=== PATIENT | male | born 1960 | race Caucasian/White ===

== ENCOUNTER 2016-07-11 18:54 | Inpatient (IN) | payer OTHER ==
[~2016-07-11] VITALS: Ht 185.4 cm; Wt 99.1 kg
[~2016-07-11 18:54] MED LIST: ADVAIR 250/501 DISK IH; ADVAIR HFA120 INHALA IH; AMLODIPINE BESY10 MG PO; AMLODIPINE BESYL5 MG PO; ARTIFICIAL TEAR15 M1 BOTH EYES; ASPIR 8181 M1 PO; ASPIR-LOW81 MG PO; ASPIRIN E.C.81 M1 PO; AZITHROMYCIN500 M1 PO; AZITHROMYCIN500 MG PO; Advair HFA 115/21 IH; BACTRIM,SEPT1 TABLET PO; BLOOD PRESSURE MED PO; CARDIZEM CD,CA240 MG PO; CARTIA XT240 MG PO; CHANTIX1 MG PO; CHLORDIAZEPOXID25 MG PO; COZAAR25 MG PO; Combivent IH; DAILY VALUE1 EACH PO; DELTASONE10 MG PO; FOLIC ACID0.4 MG PO; FOLIC ACID1 MG PO; FOLVITE1 M1 PO; Folvite PO; HABITROL,NICODER7 MG TD; KEFLEX500 MG PO; LEVAQUIN500 MG PO; LIBRIUM25 MG PO; LOPRESSOR25 MG PO; LOSARTAN POTASS25 MG PO; MAG-OX400 M1 PO; Medrol Dosepak PO; NICOTINE GUM4 MG BC; NICOTINE PATCH1 EAC2 TD; NOHOMEMEDS; PREDNISONE10 MG PO; PREDNISONE20 MG PO; PREDNISONE50 MG PO; PROAIR HFA8.5 GM IH; PROAIR RESPICL90 MCG IH; PROVENTIL HFA6.7 GM IH; PROVENTIL,2.5 MG/0.5 AEROSOL; PROVENTIL,2.5 MG/3 M IH; PriLOSEC PO; Proventil,Ventolin H IH; SPIRIVA RESPIMAT4 GM IH; THERAGRAN1 TABLET PO; THIAMINE,VITAM100 MG PO; Thiamine,Vitamin B1 PO; VENTOLIN HFA18 GM IH; VITAMIN B-1100 MG PO; VITAMIN B1,100 MG/ML IV; Vasotec PO; ZITHROMAX Z-PA250 MG PO; ZITHROMAX250 MG PO; ZITHROMAX500 MG PO; ZOFRAN ODT8 MG PO; ZOLOFT50 MG PO; ZOLPIDEM TARTRAT5 MG PO; [UNRECOGNIZED DRUG - OTHER] PO; [UNRECOGNIZED DRUG - REMARK]; prednisone
[2016-07-11 21:22] LABS: INFLUENZA A VIRAL ANTIGEN NEGATIVE; INFLUENZA B VIRAL ANTIGEN NEGATIVE
[2016-07-11 22:33] LABS: HEMATOCRIT 41.8 % (38.0-50.0); MCH 30.9 PG (29.0-34.0); MCHC 33.7 G/DL (30.0-36.0); MCV 91.5 FL (86-99); RBC DIS.WIDTH-CV 15.3 % (11.8-14.6); RBC DIS.WIDTH-SD 49.2 % (39-53); RED BLOOD COUNT 4.57 M/uL (4.00-5.50); WHITE BLOOD COUNT 6.7 K/uL (4.1-10.2)
[2016-07-11 22:36] LABS: MEAN PLAT.VOLUME 9.9 uM^3 (9.0-12.4); PLATELET COUNT 293 K/uL (156-360)
[2016-07-11 22:45] LABS: CHLORIDE 102 mEq/L (99-109)
[2016-07-11 22:46] LABS: POTASSIUM 4.3 mEq/L (3.7-5.4); SODIUM 142 mEq/L (136-147)
[2016-07-11 22:48] LABS: GLUCOSE 117 mg/dL (70-99)
[2016-07-11 22:49] LABS: ANION GAP 16 MEQ/L (2-14)
[2016-07-11 22:50] LABS: TOTAL BILIRUBIN 0.5 mg/dL (0.0-1.0)
[2016-07-11 22:51] LABS: ALKALINE PHOSPHATASE 87 IU/L (3-129); GFR ESTIMATE (CALCULATED) > 59 mL/min/
[2016-07-11 22:53] LABS: UREA NITROGEN (BUN) 6 mg/dL (9-23)
[2016-07-11 22:58] LABS: TROP-I INTERPRETATION NEGATIVE; TROPONIN-I 0.02 ng/mL (0.0-0.30)
[2016-07-12 01:37] VITALS: BP 165/90
[2016-07-12 04:41] VITALS: BP 152/76
[2016-07-12 11:46] VITALS: BP 180/78
[2016-07-12 12:38] LABS: MAGNESIUM 1.3 mg/dl (1.3-2.7)
[2016-07-12 14:00] LABS: METH RESISTANT S AUREUS PCR NEGATIVE (NEGATIVE)
[2016-07-12 14:01] LABS: PROBE CHECK PASS; SPECIMEN PROCESSING CONTROL PASS
[2016-07-12 15:45] VITALS: BP 170/84
[2016-07-13 00:20] VITALS: BP 140/71
[2016-07-13 04:05] VITALS: BP 161/71
[2016-07-13 12:00] VITALS: BP 158/68
[2016-07-13 12:53] LABS: POINT-OF-CARE METER ID UU13113700
[2016-07-13 14:00] VITALS: BP 181/84
[2016-07-13 20:39] VITALS: BP 168/81
[2016-07-14] VITALS (7 sets, daily range): BP systolic 120–184; BP diastolic 58–93
[2016-07-14 07:15] LABS: ALKALINE PHOSPHATASE 62 IU/L (3-129); ANION GAP 7 MEQ/L (2-14); CHLORIDE 105 MEQ/L (99-109); GFR ESTIMATE (CALCULATED) > 59 mL/min/; GLUCOSE 105 mg/dL (70-99); SAMPLE HEMOLYSIS CHECK 0; SAMPLE ICTERIC CHECK 0; SAMPLE LIPEMIA CHECK 0; SODIUM 138 MEQ/L (136-147); TOTAL BILIRUBIN 0.9 MG/DL (0.0-1.0); UREA NITROGEN (BUN) 6 mg/dL (9-23)
[2016-07-14 07:21] LABS: POTASSIUM 3.3 MEQ/L (3.7-5.4)
[2016-07-15 04:32] VITALS: BP 166/77
[2016-07-15 06:47] LABS: ANION GAP 11 MEQ/L (2-14); CHLORIDE 105 MEQ/L (99-109); GFR ESTIMATE (CALCULATED) > 59 mL/min/; GLUCOSE 117 mg/dL (70-99); POTASSIUM 3.4 MEQ/L (3.7-5.4); SAMPLE HEMOLYSIS CHECK 0; SAMPLE ICTERIC CHECK 0; SAMPLE LIPEMIA CHECK 0; SODIUM 142 MEQ/L (136-147); UREA NITROGEN (BUN) 9 mg/dL (9-23)
[2016-07-15 08:30] VITALS: BP 165/98
[2016-07-15 12:46] VITALS: BP 165/83
[2016-07-15 16:57] VITALS: BP 160/83
[2016-07-16 04:00] VITALS: BP 148/78
[2016-07-16 08:00] VITALS: BP 156/78
[2016-07-16 11:36] VITALS: BP 153/91
[2016-07-16 20:47] VITALS: BP 144/76
[2016-07-17] VITALS: BP 159/87
[2016-07-17 08:37] VITALS: BP 162/81
[2016-07-17] MEDS ORDERED: BENZONATATE100 MG PO (09:24)
[2016-07-17] MEDS ORDERED: CHLORDIAZEPOXID25 MG PO (09:24)
[2016-07-17] MEDS ORDERED: SPIRIVA RESPIMAT4 GM IH (09:24)
[2016-07-17] MEDS ORDERED: PREDNISONE10 MG PO (09:24)
[2016-07-17] MEDS ORDERED: NICOTINE PATCH1 EAC1 TD (09:24)
== END 2016-07-17 09:20 | disposition left against medical advice (07) | DRG 191 ==
LOC: EME 18:54 → EDOF 07-12 00:13 → 5WEST 07-12 01:23
PROVIDERS: Emergency Medicine; Internal Medicine; Nurse Practitioner Adult Health; Physician Assistant
DX: J44.1 Chronic obstructive pulmonary disease with (acute) exacerbation (principal); F10.239 Alcohol dependence with withdrawal, unspecified; K70.9 Alcoholic liver disease, unspecified; R56.9 Unspecified convulsions; F17.210 Nicotine dependence, cigarettes, uncomplicated; I48.0 Paroxysmal atrial fibrillation; I10 Essential (primary) hypertension; E78.5 Hyperlipidemia, unspecified; Z91.19 Patient's noncompliance with other medical treatment and regimen; Z59.0 Homelessness
CPT/HCPCS: 71010; 71020; 80048; 80053; 82948; 83735; 84100; 84484; 85027; 87502; 87641; 93005; 94640; 94640 76; 94760; 99202; 99281; 99285; J1650; J1885; J3411; J3475; J7030; J7042; J7512

== ENCOUNTER 2016-07-20 00:09 | Emergency (ER) | payer OTHER ==
[~2016-07-20] VITALS: Ht 185.4 cm; Wt 88.0 kg
[~2016-07-20 00:09] MED LIST changes: +BENZONATATE100 MG PO; +NICOTINE PATCH1 EAC1 TD
[2016-07-20 05:14] VITALS: BP 151/91
== END 2016-07-20 05:15 | disposition home or self-care (01) ==
LOC: EME 00:09
DX: F10.129 Alcohol abuse with intoxication, unspecified (principal)
CPT/HCPCS: 99281; 99283

== ENCOUNTER 2016-07-24 16:07 | Emergency (ER) | payer OTHER ==
[~2016-07-24] VITALS: Ht 185.4 cm; Wt 101.2 kg
[2016-07-24] MEDS ORDERED: ZITHROMAX Z-PA250 MG PO (19:47)
[2016-07-24] MEDS ORDERED: PREDNISONE20 MG PO (19:47)
[2016-07-24] MEDS ORDERED: VENTOLIN HFA18 GM IH (19:47)
[2016-07-24 21:23] VITALS: BP 128/71
== END 2016-07-24 21:24 | disposition home or self-care (01) ==
LOC: EME 16:07
DX: J44.9 Chronic obstructive pulmonary disease, unspecified (principal); J45.909 Unspecified asthma, uncomplicated; I10 Essential (primary) hypertension; Z87.442 Personal history of urinary calculi; F17.200 Nicotine dependence, unspecified, uncomplicated
CPT/HCPCS: 71020; 94640; 99281; 99284; J7512

== ENCOUNTER 2016-08-01 13:25 | Emergency (ER) | payer OTHER ==
[~2016-08-01] VITALS: Ht 185.4 cm; Wt 98.2 kg
[2016-08-01] MEDS ORDERED: PROAIR RESPICL90 MCG IH (16:53)
[2016-08-01] MEDS ORDERED: ZITHROMAX500 MG PO (16:53)
[2016-08-01] MEDS ORDERED: LIBRIUM25 MG PO (16:53)
[2016-08-01 17:34] VITALS: BP 138/88
== END 2016-08-01 17:37 | disposition home or self-care (01) ==
LOC: EME 13:25
DX: J44.1 Chronic obstructive pulmonary disease with (acute) exacerbation (principal); F10.129 Alcohol abuse with intoxication, unspecified; J45.909 Unspecified asthma, uncomplicated; I48.91 Unspecified atrial fibrillation; G89.29 Other chronic pain; I10 Essential (primary) hypertension; K21.9 Gastro-esophageal reflux disease without esophagitis; R56.9 Unspecified convulsions; Z59.0 Homelessness; F17.200 Nicotine dependence, unspecified, uncomplicated
CPT/HCPCS: 94640; 99281; 99284

== ENCOUNTER 2016-10-03 20:15 | Emergency (ER) | payer OTHER ==
[~2016-10-03] VITALS: Ht 180.3 cm; Wt 86.3 kg
[2016-10-04 02:58] VITALS: BP 135/84
== END 2016-10-04 03:06 | disposition home or self-care (01) ==
LOC: EME 20:15 → EXP 20:15
DX: F10.229 Alcohol dependence with intoxication, unspecified (principal); J44.9 Chronic obstructive pulmonary disease, unspecified; I10 Essential (primary) hypertension; Z59.0 Homelessness; F17.200 Nicotine dependence, unspecified, uncomplicated
CPT/HCPCS: 99281; 99283

== ENCOUNTER 2016-10-07 18:56 | Inpatient (IN) | payer OTHER ==
[~2016-10-07] VITALS: Ht 185.4 cm; Wt 93.5 kg
[2016-10-07 21:43] LABS: HEMATOCRIT 46.5 % (38.0-50.0); MCH 31.1 PG (29.0-34.0); MCHC 34.2 G/DL (30.0-36.0); MCV 90.8 FL (86-99); MEAN PLAT.VOLUME 10.4 uM^3 (9.0-12.4); PLATELET COUNT 210 K/uL (156-360); RBC DIS.WIDTH-CV 15.5 % (11.8-14.6); RBC DIS.WIDTH-SD 51.4 % (39-53); RED BLOOD COUNT 5.12 M/uL (4.00-5.50); WHITE BLOOD COUNT 8.1 K/uL (4.1-10.2)
[2016-10-07 21:51] LABS: CHLORIDE 98 mEq/L (99-109); SODIUM 140 mEq/L (136-147)
[2016-10-07 21:53] LABS: GLUCOSE 106 mg/dL (70-99)
[2016-10-07 21:54] LABS: ANION GAP 20 MEQ/L (2-14)
[2016-10-07 21:56] LABS: GFR ESTIMATE (CALCULATED) > 59 mL/min/; SERUM ETHYL ALCOHOL 432 mg/dL
[2016-10-07 21:57] LABS: UREA NITROGEN (BUN) 5 mg/dL (9-23)
[2016-10-08 01:40] VITALS: BP 161/78
[2016-10-08 07:08] LABS: HEMATOCRIT 40.9 % (38.0-50.0); MCH 30.8 PG (29.0-34.0); MCHC 33.3 G/DL (30.0-36.0); MCV 92.5 FL (86-99); MEAN PLAT.VOLUME 10.5 uM^3 (9.0-12.4); PLATELET COUNT 201 K/uL (156-360); RBC DIS.WIDTH-CV 15.8 % (11.8-14.6); RBC DIS.WIDTH-SD 53.8 % (39-53); RED BLOOD COUNT 4.42 M/uL (4.00-5.50)
[2016-10-08 07:11] LABS: ALKALINE PHOSPHATASE 80 IU/L (3-129); ANION GAP 11 MEQ/L (2-14); CHLORIDE 103 MEQ/L (99-109); GFR ESTIMATE (CALCULATED) > 59 mL/min/; POTASSIUM 4.6 MEQ/L (3.7-5.4); SAMPLE HEMOLYSIS CHECK 0; SAMPLE ICTERIC CHECK 0; SAMPLE LIPEMIA CHECK 0; SODIUM 141 MEQ/L (136-147); TOTAL BILIRUBIN 0.5 MG/DL (0.0-1.0); UREA NITROGEN (BUN) 4 mg/dL (9-23)
[2016-10-08 07:15] LABS: GLUCOSE 230 mg/dL (70-99)
[2016-10-08 07:17] LABS: WHITE BLOOD COUNT 2.7 K/uL (4.1-10.2)
[2016-10-08 08:13] VITALS: BP 119/77
[2016-10-08 16:02] VITALS: BP 156/77
[2016-10-08 22:11] VITALS: BP 162/86
[2016-10-09 07:44] LABS: ALKALINE PHOSPHATASE 72 IU/L (3-129); ANION GAP 11 MEQ/L (2-14); CHLORIDE 101 MEQ/L (99-109); GFR ESTIMATE (CALCULATED) > 59 mL/min/; GLUCOSE 147 mg/dL (70-99); SAMPLE HEMOLYSIS CHECK 1; SAMPLE ICTERIC CHECK 0; SAMPLE LIPEMIA CHECK 0; SODIUM 137 MEQ/L (136-147); UREA NITROGEN (BUN) 5 mg/dL (9-23)
[2016-10-09 07:47] LABS: POTASSIUM 4.3 MEQ/L (3.7-5.4); TOTAL BILIRUBIN 1.1 MG/DL (0.0-1.0)
[2016-10-09 08:00] LABS: EOSINOPHIL (%) 0 % (0-5); HEMATOCRIT 37.8 % (38.0-50.0); IMMATURE GRANULOCYTE (%) 0.4 % (0.0-0.7); LYMPHOCYTE COUNT 0.4 K/uL (1.0-2.8); MCH 31.3 PG (29.0-34.0); MCHC 33.9 G/DL (30.0-36.0); MCV 92.4 FL (86-99); MEAN PLAT.VOLUME 11.2 uM^3 (9.0-12.4); MONOCYTE (%) 6.9 % (3-12); MONOCYTE COUNT 0.6 K/uL (0-0.8); NEUTROPHIL (%) 88.7 % (45-76); PLATELET COUNT 193 K/uL (156-360); RBC DIS.WIDTH-CV 15.9 % (11.8-14.6); RBC DIS.WIDTH-SD 53.5 % (39-53); RED BLOOD COUNT 4.09 M/uL (4.00-5.50)
[2016-10-09 08:22] VITALS: BP 168/93
[2016-10-09 12:25] LABS: INFLUENZA A VIRAL ANTIGEN NEGATIVE; INFLUENZA B VIRAL ANTIGEN NEGATIVE
[2016-10-09 16:25] VITALS: BP 170/85
[2016-10-09 19:36] LABS: AMPHETAMINES QUANT VALUE 0 NG/ML; BARBITUATES QUANT VALUE 0 NG/ML; BENZODIAZEPINES, URINE SCREEN POSITIVE (200 ng/mL); MARIJUANA QUANT VALUE 0 NG/ML; OPIATES QUANTITATIVE VALUE 0 NG/ML; PHENCYCLIDINE QUANT VALUE 0 NG/ML
[2016-10-09 23:50] VITALS: BP 163/72
[2016-10-10 06:41] LABS: ALKALINE PHOSPHATASE 66 IU/L (3-129); ANION GAP 8 MEQ/L (2-14); CHLORIDE 102 MEQ/L (99-109); GFR ESTIMATE (CALCULATED) > 59 mL/min/; GLUCOSE 167 mg/dL (70-99); POTASSIUM 4.2 MEQ/L (3.7-5.4); SAMPLE HEMOLYSIS CHECK 0; SAMPLE ICTERIC CHECK 0; SAMPLE LIPEMIA CHECK 0; SODIUM 136 MEQ/L (136-147); UREA NITROGEN (BUN) 9 mg/dL (9-23)
[2016-10-10 06:42] LABS: TOTAL BILIRUBIN 0.8 MG/DL (0.0-1.0)
[2016-10-10 07:28] LABS: EOSINOPHIL (%) 0 % (0-5); HEMATOCRIT 38.5 % (38.0-50.0); IMMATURE GRANULOCYTE (%) 0.4 % (0.0-0.7); INSTRUMENT ABS NEUTROPHIL CT 7.8 K/uL; LYMPHOCYTE COUNT 0.6 K/uL (1.0-2.8); MCH 30.9 PG (29.0-34.0); MCV 93.7 FL (86-99); MEAN PLAT.VOLUME 11.4 uM^3 (9.0-12.4); MONOCYTE (%) 7.8 % (3-12); MONOCYTE COUNT 0.7 K/uL (0-0.8); NEUTROPHIL COUNT 7.8 K/uL (1.8-6.4); PLATELET COUNT 195 K/uL (156-360); RBC DIS.WIDTH-SD 55.4 % (39-53); RED BLOOD COUNT 4.11 M/uL (4.00-5.50); WHITE BLOOD COUNT 9.1 K/uL (4.1-10.2)
[2016-10-10 08:02] VITALS: BP 187/88
[2016-10-10 11:41] VITALS: BP 168/94
[2016-10-10 18:51] VITALS: BP 188/92
[2016-10-10 23:48] VITALS: BP 190/92
[2016-10-11 06:19] VITALS: BP 188/100
[2016-10-11 06:24] LABS: EOSINOPHIL (%) 0 % (0-5); HEMATOCRIT 41.3 % (38.0-50.0); IMMATURE GRANULOCYTE (%) 1.4 % (0.0-0.7); IMMATURE GRANULOCYTE COUNT 0.1 K/uL; INSTRUMENT ABS NEUTROPHIL CT 8.5 K/uL; LYMPHOCYTE COUNT 0.5 K/uL (1.0-2.8); MCH 31.3 PG (29.0-34.0); MCHC 33.2 G/DL (30.0-36.0); MCV 94.3 FL (86-99); MEAN PLAT.VOLUME 11.8 uM^3 (9.0-12.4); MONOCYTE (%) 6.6 % (3-12); MONOCYTE COUNT 0.6 K/uL (0-0.8); NEUTROPHIL (%) 86.9 % (45-76); NEUTROPHIL COUNT 8.5 K/uL (1.8-6.4); PLATELET COUNT 221 K/uL (156-360); RBC DIS.WIDTH-CV 15.8 % (11.8-14.6); RBC DIS.WIDTH-SD 55.5 % (39-53); RED BLOOD COUNT 4.38 M/uL (4.00-5.50); WHITE BLOOD COUNT 9.8 K/uL (4.1-10.2)
[2016-10-11 06:49] VITALS: BP 170/76
[2016-10-11 06:50] LABS: ALKALINE PHOSPHATASE 64 IU/L (3-129); ANION GAP 8 MEQ/L (2-14); CHLORIDE 103 MEQ/L (99-109); GFR ESTIMATE (CALCULATED) > 59 mL/min/; GLUCOSE 203 mg/dL (70-99); SAMPLE HEMOLYSIS CHECK 0; SAMPLE ICTERIC CHECK 0; SAMPLE LIPEMIA CHECK 0; SODIUM 140 MEQ/L (136-147); TOTAL BILIRUBIN 0.7 MG/DL (0.0-1.0); UREA NITROGEN (BUN) 11 mg/dL (9-23)
[2016-10-11 12:34] LABS: Estimated Average Glucose 114 mg/dL (70-123); HEMOGLOBIN A1c (GLYCOHEMOGLOB) 5.6 % HGB (Below 5.7)
== END 2016-10-11 14:40 | disposition left against medical advice (07) | DRG 190 ==
LOC: EME 18:56 → EDOF 22:37 → 5EAST 22:37
PROVIDERS: Emergency Medicine; Hospitalist; Internal Medicine
PROC: HZ2ZZZZ Detoxification Services for Substance Abuse Treatment (ICD-10-PCS; principal; 2016-10-07)
DX: J44.1 Chronic obstructive pulmonary disease with (acute) exacerbation (principal); J96.01 Acute respiratory failure with hypoxia; J44.0 Chronic obstructive pulmonary disease with (acute) lower respiratory infection; E87.2 Acidosis; I48.0 Paroxysmal atrial fibrillation; I10 Essential (primary) hypertension; F10.20 Alcohol dependence, uncomplicated; F41.9 Anxiety disorder, unspecified; J20.9 Acute bronchitis, unspecified; F17.210 Nicotine dependence, cigarettes, uncomplicated; F33.9 Major depressive disorder, recurrent, unspecified; Z87.820 Personal history of traumatic brain injury; Z59.0 Homelessness; E66.01 Morbid (severe) obesity due to excess calories
CPT/HCPCS: 70450; 71020; 80048; 80053; 80306 90; 83036; 85025; 85027; 87502; 93005; 94640; 94640 76; 94667; 94668; 94799; 97530 GO; 99202; 99281; 99285; G0480; J1644; J2060; J2930; J3411; J3475; J7030; J7512; S0028

== ENCOUNTER 2016-10-14 19:39 | Emergency (ER) | payer OTHER ==
[~2016-10-14] VITALS: Ht 185.4 cm; Wt 100.0 kg
[2016-10-14 21:41] LABS: EOSINOPHIL (%) 1.6 % (0-5); EOSINOPHIL COUNT 0.1 K/uL (0-0.3); HEMATOCRIT 39.3 % (38.0-50.0); IMMATURE GRANULOCYTE (%) 1.3 % (0.0-0.7); IMMATURE GRANULOCYTE COUNT 0.1 K/uL; INSTRUMENT ABS NEUTROPHIL CT 3.8 K/uL; LYMPHOCYTE COUNT 2.2 K/uL (1.0-2.8); MCH 31.2 PG (29.0-34.0); MCHC 32.8 G/DL (30.0-36.0); MCV 94.9 FL (86-99); MEAN PLAT.VOLUME 10.1 uM^3 (9.0-12.4); MONOCYTE (%) 16.6 % (3-12); MONOCYTE COUNT 1.3 K/uL (0-0.8); NEUTROPHIL (%) 50.9 % (45-76); NEUTROPHIL COUNT 3.8 K/uL (1.8-6.4); PLATELET COUNT 260 K/uL (156-360); RBC DIS.WIDTH-CV 16.4 % (11.8-14.6); RBC DIS.WIDTH-SD 57.5 % (39-53); RED BLOOD COUNT 4.14 M/uL (4.00-5.50); WHITE BLOOD COUNT 7.5 K/uL (4.1-10.2)
[2016-10-14 21:51] LABS: CHLORIDE 106 mEq/L (99-109); POTASSIUM 3.7 mEq/L (3.7-5.4); SODIUM 145 mEq/L (136-147)
[2016-10-14 21:53] LABS: GLUCOSE 143 mg/dL (70-99)
[2016-10-14 21:55] LABS: ANION GAP 11 MEQ/L (2-14); TOTAL BILIRUBIN 0.2 mg/dL (0.0-1.0)
[2016-10-14 21:56] LABS: SERUM ETHYL ALCOHOL 336 mg/dL
[2016-10-14 21:57] LABS: GFR ESTIMATE (CALCULATED) > 59 mL/min/
[2016-10-14 21:58] LABS: ALKALINE PHOSPHATASE 74 IU/L (3-129)
[2016-10-14 21:59] LABS: UREA NITROGEN (BUN) 14 mg/dL (9-23)
[2016-10-14 22:00] LABS: SALICYLATE < 5.0 MG/DL (15-30)
[2016-10-14 22:01] LABS: TROP-I INTERPRETATION NEGATIVE; TROPONIN-I 0.01 ng/mL (0.0-0.30)
[2016-10-14 22:22] LABS: ADD MIUA? NO; BILIRUBIN NEGATIVE; BLOOD NEGATIVE; COLOR YELLOW ((YELLOW)); GLUCOSE (STRIP) NEGATIVE; KETONES NEGATIVE; LEUKOCYTES NEGATIVE; NITRITE NEGATIVE; PROTEIN (STRIP) NEGATIVE; SPECIFIC GRAVITY 1.014 (1.000-1.030); UCUL ADDED? NO; UROBILINOGEN 0.2 MG/DL (0.2-1.0)
[2016-10-14 22:36] LABS: ADD MEDTOX COMMENT Y; AMPHETAMINE NEGATIVE (500 ng/mL); BARBITURATES NEGATIVE (200 ng/mL); BENZODIAZEPINES PRESUMPTIVE POSITIVE (150 ng/mL); COCAINE NEGATIVE (150 ng/mL); INTERNAL CONTROLS VALID? YES; METHADONE NEGATIVE (200 ng/mL); METHAMPHETAMINE NEGATIVE (500 ng/mL); OPIATES (MORPHINE) NEGATIVE (100 ng/mL); OXYCODONE NEGATIVE (100 ng/mL); PHENCYCLIDINE NEGATIVE (25 ng/mL); PROPOXYPHENE NEGATIVE (300 ng/mL); THC CANNABINOIDS NEGATIVE (50 ng/mL); TRICYCLIC ANTIDEPRESSANTS NEGATIVE (300 ng/mL)
[2016-10-14 23:08] LABS: BENZODIAZEPINES, URINE SCREEN POSITIVE (200 ng/mL)
[2016-10-15 03:12] VITALS: BP 131/78
== END 2016-10-15 03:13 | disposition home or self-care (01) ==
LOC: EME 19:39
PROVIDERS: Emergency Medicine
DX: F10.129 Alcohol abuse with intoxication, unspecified (principal); R00.0 Tachycardia, unspecified; I10 Essential (primary) hypertension; Z91.14 Patient's other noncompliance with medication regimen; Y90.8 Blood alcohol level of 240 mg/100 ml or more; F17.200 Nicotine dependence, unspecified, uncomplicated
CPT/HCPCS: 71010; 80053; 81003; 84484; 84999; 85025; 93005; 99281; 99284; G0480; J2060; J7030

== ENCOUNTER 2016-10-22 16:02 | Emergency (ER) | payer OTHER ==
[~2016-10-22] VITALS: Ht 185.4 cm; Wt 95.2 kg
[2016-10-22 16:06] VITALS: BP 149/95
[2016-10-22 16:36] LABS: HEMATOCRIT 42.2 % (38.0-50.0); MCH 31.3 PG (29.0-34.0); MCHC 34.4 G/DL (30.0-36.0); PLATELET COUNT 311 K/uL (156-360); RBC DIS.WIDTH-CV 16.2 % (11.8-14.6); RBC DIS.WIDTH-SD 54.4 % (39-53); RED BLOOD COUNT 4.64 M/uL (4.00-5.50)
[2016-10-22 16:38] LABS: MCV 90.9 FL (86-99); WHITE BLOOD COUNT 10.4 K/uL (4.1-10.2)
[2016-10-22 16:43] LABS: CHLORIDE 97 mEq/L (99-109); POTASSIUM 3.4 mEq/L (3.7-5.4); SODIUM 138 mEq/L (136-147)
[2016-10-22 16:45] LABS: GLUCOSE 97 mg/dL (70-99)
[2016-10-22 16:46] LABS: ANION GAP 14 MEQ/L (2-14)
[2016-10-22 16:48] LABS: SERUM ETHYL ALCOHOL 234 mg/dL
[2016-10-22 16:49] LABS: GFR ESTIMATE (CALCULATED) > 59 mL/min/
[2016-10-22 16:50] LABS: UREA NITROGEN (BUN) 8 mg/dL (9-23)
[2016-10-22 16:55] LABS: TROP-I INTERPRETATION NEGATIVE; TROPONIN-I 0.02 ng/mL (0.0-0.30)
== END 2016-10-22 21:53 | disposition left against medical advice (07) ==
LOC: EME 16:02
PROVIDERS: Emergency Medicine
DX: R07.9 Chest pain, unspecified (principal); F10.99 Alcohol use, unspecified with unspecified alcohol-induced disorder; R79.1 Abnormal coagulation profile; Y90.7 Blood alcohol level of 200-239 mg/100 ml; F17.200 Nicotine dependence, unspecified, uncomplicated
CPT/HCPCS: 71020; 80048; 83880; 84484; 85027; 85379; 93005; 99281; 99284; G0480

== ENCOUNTER 2016-10-24 18:35 | Emergency (ER) | payer OTHER ==
[~2016-10-24] VITALS: Ht 185.4 cm; Wt 95.7 kg
[2016-10-24 21:45] VITALS: BP 117/74
== END 2016-10-24 21:46 | disposition home or self-care (01) ==
LOC: EME 18:35
DX: S01.01XA Laceration without foreign body of scalp, initial encounter (principal); W19.XXXA Unspecified fall, initial encounter; J45.909 Unspecified asthma, uncomplicated; J44.9 Chronic obstructive pulmonary disease, unspecified; I10 Essential (primary) hypertension; Z87.442 Personal history of urinary calculi; Z88.1 Allergy status to other antibiotic agents; F17.200 Nicotine dependence, unspecified, uncomplicated
CPT/HCPCS: 70450; 99281; 99284

== ENCOUNTER 2016-10-27 14:42 | Emergency (ER) | payer OTHER ==
[~2016-10-27] VITALS: Ht 185.4 cm; Wt 95.7 kg
[2016-10-27 14:49] VITALS: BP 150/86
== END 2016-10-27 15:25 | disposition left against medical advice (07) ==
LOC: EME 14:42
DX: R07.9 Chest pain, unspecified (principal); J44.9 Chronic obstructive pulmonary disease, unspecified; I10 Essential (primary) hypertension; Z87.442 Personal history of urinary calculi; K21.9 Gastro-esophageal reflux disease without esophagitis; F17.200 Nicotine dependence, unspecified, uncomplicated

== ENCOUNTER 2016-10-29 22:55 | Emergency (ER) | payer OTHER ==
[~2016-10-29] VITALS: Ht 185.4 cm; Wt 95.9 kg
[2016-10-29 23:31] VITALS: BP 140/96
== END 2016-10-30 02:45 | disposition left against medical advice (07) ==
LOC: EME 22:55
DX: F10.10 Alcohol abuse, uncomplicated (principal); Z91.81 History of falling; F17.200 Nicotine dependence, unspecified, uncomplicated; Z88.1 Allergy status to other antibiotic agents; J45.909 Unspecified asthma, uncomplicated; J44.9 Chronic obstructive pulmonary disease, unspecified; I10 Essential (primary) hypertension; Z59.0 Homelessness
CPT/HCPCS: 99281; 99282

== ENCOUNTER 2016-11-02 17:51 | Emergency (ER) | payer OTHER ==
[~2016-11-02] VITALS: Ht 185.4 cm; Wt 97.0 kg
[2016-11-02 18:59] LABS: HEMATOCRIT 43.7 % (38.0-50.0); MCH 31.4 PG (29.0-34.0); MCHC 33.2 G/DL (30.0-36.0); MCV 94.6 FL (86-99); MEAN PLAT.VOLUME 9.2 uM^3 (9.0-12.4); PLATELET COUNT 348 K/uL (156-360); RBC DIS.WIDTH-CV 16.2 % (11.8-14.6); RBC DIS.WIDTH-SD 56.7 % (39-53); RED BLOOD COUNT 4.62 M/uL (4.00-5.50); WHITE BLOOD COUNT 7.9 K/uL (4.1-10.2)
[2016-11-02 19:10] LABS: CHLORIDE 104 mEq/L (99-109); SODIUM 144 mEq/L (136-147)
[2016-11-02 19:11] LABS: GLUCOSE 99 mg/dL (70-99)
[2016-11-02 19:13] LABS: ANION GAP 15 MEQ/L (2-14)
[2016-11-02 19:15] LABS: GFR ESTIMATE (CALCULATED) > 59 mL/min/; SERUM ETHYL ALCOHOL 445 mg/dL
[2016-11-02 19:16] LABS: UREA NITROGEN (BUN) 4 mg/dL (9-23)
[2016-11-02] MEDS ORDERED: VENTOLIN HFA18 GM IH (21:00)
[2016-11-02] MEDS ORDERED: ZITHROMAX Z-PA250 MG PO (21:00)
[2016-11-02] MEDS ORDERED: PREDNISONE20 MG PO (21:01)
[2016-11-02 21:11] VITALS: BP 138/80
== END 2016-11-02 21:11 | disposition home or self-care (01) ==
LOC: EME 17:51
PROVIDERS: Emergency Medicine
DX: F10.129 Alcohol abuse with intoxication, unspecified (principal); J44.9 Chronic obstructive pulmonary disease, unspecified; J45.909 Unspecified asthma, uncomplicated; I10 Essential (primary) hypertension; K21.9 Gastro-esophageal reflux disease without esophagitis; G89.29 Other chronic pain; R56.9 Unspecified convulsions; Z59.0 Homelessness; F17.200 Nicotine dependence, unspecified, uncomplicated
CPT/HCPCS: 71010; 80048; 85027; 93005; 94640; 99281; 99284; G0480; J7512

== ENCOUNTER 2016-11-04 23:44 | Emergency (ER) | payer OTHER ==
[~2016-11-04] VITALS: Ht 185.4 cm; Wt 96.2 kg
[2016-11-05 01:40] LABS: HEMATOCRIT 42.5 % (38.0-50.0); MCH 31.5 PG (29.0-34.0); MCHC 33.9 G/DL (30.0-36.0); MEAN PLAT.VOLUME 9.5 uM^3 (9.0-12.4); PLATELET COUNT 315 K/uL (156-360); RBC DIS.WIDTH-CV 16.3 % (11.8-14.6); RBC DIS.WIDTH-SD 55.8 % (39-53); RED BLOOD COUNT 4.57 M/uL (4.00-5.50); WHITE BLOOD COUNT 6.1 K/uL (4.1-10.2)
[2016-11-05 01:57] LABS: CHLORIDE 102 mEq/L (99-109); POTASSIUM 3.9 mEq/L (3.7-5.4); SODIUM 143 mEq/L (136-147)
[2016-11-05 01:59] LABS: GLUCOSE 88 mg/dL (70-99)
[2016-11-05 02:00] LABS: ANION GAP 15 MEQ/L (2-14)
[2016-11-05 02:01] LABS: TOTAL BILIRUBIN 0.8 mg/dL (0.0-1.0)
[2016-11-05 02:03] LABS: ALKALINE PHOSPHATASE 140 IU/L (3-129); GFR ESTIMATE (CALCULATED) > 59 mL/min/
[2016-11-05 02:04] LABS: UREA NITROGEN (BUN) 6 mg/dL (9-23)
[2016-11-05 02:06] LABS: LIPASE 81 U/L (1.0-51.0); TROP-I INTERPRETATION NEGATIVE; TROPONIN-I 0.02 ng/mL (0.0-0.30)
[2016-11-05 06:12] VITALS: BP 121/87
== END 2016-11-05 06:21 | disposition home or self-care (01) ==
LOC: EME 23:44
PROVIDERS: Physician Assistant
DX: F10.10 Alcohol abuse, uncomplicated (principal); S00.03XA Contusion of scalp, initial encounter; R07.9 Chest pain, unspecified; R10.9 Unspecified abdominal pain; G89.29 Other chronic pain; W19.XXXA Unspecified fall, initial encounter; J45.909 Unspecified asthma, uncomplicated; J44.9 Chronic obstructive pulmonary disease, unspecified; I10 Essential (primary) hypertension; Z87.442 Personal history of urinary calculi; Z88.1 Allergy status to other antibiotic agents; F17.200 Nicotine dependence, unspecified, uncomplicated
CPT/HCPCS: 70450; 71020; 72125; 80053; 83690; 84484; 85027; 93005; 99281; 99283; G0480

== ENCOUNTER 2016-11-07 18:58 | Emergency (ER) | payer OTHER ==
[~2016-11-07] VITALS: Ht 185.4 cm; Wt 94.8 kg
[2016-11-07 20:12] LABS: MCHC 33.3 G/DL (30.0-36.0); MCV 93.3 FL (86-99); MEAN PLAT.VOLUME 10.1 uM^3 (9.0-12.4); PLATELET COUNT 261 K/uL (156-360); RBC DIS.WIDTH-CV 16.1 % (11.8-14.6); RBC DIS.WIDTH-SD 54.5 % (39-53); RED BLOOD COUNT 4.61 M/uL (4.00-5.50); WHITE BLOOD COUNT 7.2 K/uL (4.1-10.2)
[2016-11-07 20:20] LABS: CHLORIDE 102 mEq/L (99-109); POTASSIUM 4.3 mEq/L (3.7-5.4); SODIUM 142 mEq/L (136-147)
[2016-11-07 20:21] LABS: GLUCOSE 82 mg/dL (70-99)
[2016-11-07 20:23] LABS: ANION GAP 18 MEQ/L (2-14)
[2016-11-07 20:25] LABS: GFR ESTIMATE (CALCULATED) > 59 mL/min/
[2016-11-07 20:26] LABS: UREA NITROGEN (BUN) 12 mg/dL (9-23)
[2016-11-07 20:30] LABS: TROP-I INTERPRETATION NEGATIVE; TROPONIN-I 0.01 ng/mL (0.0-0.30)
[2016-11-07 22:06] VITALS: BP 137/94
== END 2016-11-07 22:06 | disposition home or self-care (01) ==
LOC: EME 18:58
DX: F10.129 Alcohol abuse with intoxication, unspecified (principal); R07.9 Chest pain, unspecified; R06.02 Shortness of breath; Z87.891 Personal history of nicotine dependence; Y90.9 Presence of alcohol in blood, level not specified; M25.519 Pain in unspecified shoulder; J44.9 Chronic obstructive pulmonary disease, unspecified; I10 Essential (primary) hypertension; J45.909 Unspecified asthma, uncomplicated; K21.9 Gastro-esophageal reflux disease without esophagitis; G89.29 Other chronic pain; G43.909 Migraine, unspecified, not intractable, without status migrainosus
CPT/HCPCS: 71020; 80048; 84484; 85027; 93005; 99281; 99284

== ENCOUNTER 2016-11-08 17:37 | Emergency (ER) | payer OTHER ==
[~2016-11-08] VITALS: Ht 185.4 cm; Wt 94.5 kg
[2016-11-08 22:50] VITALS: BP 141/78
== END 2016-11-08 22:54 | disposition home or self-care (01) ==
LOC: EME 17:37
DX: F10.129 Alcohol abuse with intoxication, unspecified (principal); J45.909 Unspecified asthma, uncomplicated; J44.9 Chronic obstructive pulmonary disease, unspecified; I10 Essential (primary) hypertension; K21.9 Gastro-esophageal reflux disease without esophagitis; Z87.442 Personal history of urinary calculi; Z72.0 Tobacco use
CPT/HCPCS: 99281; 99283

== ENCOUNTER 2016-11-09 23:36 | Emergency (ER) | payer OTHER ==
[~2016-11-09] VITALS: Ht 185.4 cm; Wt 90.7 kg
[2016-11-10 00:06] LABS: HEMATOCRIT 40.4 % (38.0-50.0); MCH 31.4 PG (29.0-34.0); MCHC 34.4 G/DL (30.0-36.0); MCV 91.2 FL (86-99); MEAN PLAT.VOLUME 10.4 uM^3 (9.0-12.4); PLATELET COUNT 197 K/uL (156-360); RBC DIS.WIDTH-CV 15.5 % (11.8-14.6); RBC DIS.WIDTH-SD 51.6 % (39-53); RED BLOOD COUNT 4.43 M/uL (4.00-5.50); WHITE BLOOD COUNT 7.3 K/uL (4.1-10.2)
[2016-11-10 00:15] LABS: CHLORIDE 93 mEq/L (99-109); POTASSIUM 4.6 mEq/L (3.7-5.4)
[2016-11-10 00:17] LABS: GLUCOSE 87 mg/dL (70-99)
[2016-11-10 00:19] LABS: ANION GAP 21 MEQ/L (2-14)
[2016-11-10 00:21] LABS: GFR ESTIMATE (CALCULATED) > 59 mL/min/; PROTHROMBIN TIME 10.6 (9.2-11.2); PTT 27.1 (25-32)
[2016-11-10 00:22] LABS: UREA NITROGEN (BUN) 13 mg/dL (9-23)
[2016-11-10 00:25] LABS: LIPASE 47 U/L (1.0-51.0)
[2016-11-10 00:30] LABS: TROP-I INTERPRETATION NEGATIVE; TROPONIN-I 0.02 ng/mL (0.0-0.30)
[2016-11-10 00:42] LABS: SODIUM 134 mEq/L (136-147)
[2016-11-10 01:01] LABS: DIRECT BILIRUBIN 0.5 mg/dL (0.0-0.3)
[2016-11-10 01:03] LABS: ALKALINE PHOSPHATASE 201 IU/L (3-129); TOTAL BILIRUBIN 1.2 mg/dL (0.0-1.0)
[2016-11-10 02:05] LABS: SERUM ETHYL ALCOHOL 398 mg/dL
[2016-11-10 04:22] LABS: TROP-I INTERPRETATION NEGATIVE; TROPONIN-I 0.02 ng/mL (0.0-0.30)
[2016-11-10 05:38] VITALS: BP 121/65
== END 2016-11-10 05:42 | disposition home or self-care (01) ==
LOC: EME → EDBD 23:36 → EME 11-10 05:42
PROVIDERS: Emergency Medicine
DX: R07.89 Other chest pain (principal); K29.70 Gastritis, unspecified, without bleeding; F10.129 Alcohol abuse with intoxication, unspecified; R74.0 Nonspecific elevation of levels of transaminase and lactic acid dehydrogenase [LDH]; I10 Essential (primary) hypertension; Z87.442 Personal history of urinary calculi; Z87.891 Personal history of nicotine dependence
CPT/HCPCS: 71020; 80048; 80076; 82140; 83690; 84484; 85027; 85610; 85730; 93005; 99281; 99285; G0480

== ENCOUNTER 2016-11-17 23:47 | Emergency (ER) | payer OTHER ==
[~2016-11-17] VITALS: Ht 185.4 cm; Wt 96.5 kg
[2016-11-18 01:05] LABS: HEMATOCRIT 46.6 % (38.0-50.0); MCH 31.5 PG (29.0-34.0); MCHC 33.7 G/DL (30.0-36.0); MCV 93.6 FL (86-99); MEAN PLAT.VOLUME 10.3 uM^3 (9.0-12.4); PLATELET COUNT 185 K/uL (156-360); RBC DIS.WIDTH-CV 15.8 % (11.8-14.6); RBC DIS.WIDTH-SD 54.5 % (39-53); RED BLOOD COUNT 4.98 M/uL (4.00-5.50); WHITE BLOOD COUNT 7.7 K/uL (4.1-10.2)
[2016-11-18 01:39] LABS: CHLORIDE 104 mEq/L (99-109); SODIUM 140 mEq/L (136-147)
[2016-11-18 01:40] LABS: GLUCOSE 127 mg/dL (70-99)
[2016-11-18 01:42] LABS: ANION GAP 16 MEQ/L (2-14)
[2016-11-18 01:44] LABS: GFR ESTIMATE (CALCULATED) > 59 mL/min/
[2016-11-18 01:45] LABS: UREA NITROGEN (BUN) 4 mg/dL (9-23)
[2016-11-18 01:52] LABS: TROP-I INTERPRETATION NEGATIVE; TROPONIN-I 0.02 ng/mL (0.0-0.30)
[2016-11-18 03:30] VITALS: BP 156/87
== END 2016-11-18 04:33 | disposition left against medical advice (07) ==
LOC: EME → EDBD 23:47 → EME 23:47
PROVIDERS: Emergency Medicine
DX: R07.89 Other chest pain (principal); K29.70 Gastritis, unspecified, without bleeding; F10.10 Alcohol abuse, uncomplicated; E87.6 Hypokalemia; J44.9 Chronic obstructive pulmonary disease, unspecified; I10 Essential (primary) hypertension; J45.909 Unspecified asthma, uncomplicated; G89.29 Other chronic pain; K21.9 Gastro-esophageal reflux disease without esophagitis; R56.9 Unspecified convulsions; Z59.0 Homelessness; Z72.0 Tobacco use
CPT/HCPCS: 71010; 80048; 84484; 85027; 93005; 99281; 99285; J1100; J7644

== ENCOUNTER 2016-11-20 00:08 | Emergency (ER) | payer OTHER ==
[~2016-11-20] VITALS: Ht 185.4 cm; Wt 96.5 kg
[2016-11-20 00:27] VITALS: BP 133/88
== END 2016-11-20 05:39 | disposition left against medical advice (07) ==
LOC: EME 00:08 → EXP 00:08
DX: F10.129 Alcohol abuse with intoxication, unspecified (principal); J44.9 Chronic obstructive pulmonary disease, unspecified; Z91.19 Patient's noncompliance with other medical treatment and regimen; Z72.0 Tobacco use
CPT/HCPCS: 99281; 99283

== ENCOUNTER 2016-11-22 23:09 | Emergency (ER) | payer OTHER ==
[~2016-11-22] VITALS: Ht 185.4 cm; Wt 98.2 kg
[2016-11-22 23:57] LABS: CHLORIDE 95 mEq/L (99-109)
[2016-11-22 23:59] LABS: GLUCOSE 95 mg/dL (70-99)
[2016-11-23] LABS: ANION GAP 16 MEQ/L (2-14)
[2016-11-23 00:03] LABS: GFR ESTIMATE (CALCULATED) > 59 mL/min/
[2016-11-23 00:04] LABS: UREA NITROGEN (BUN) 6 mg/dL (9-23)
[2016-11-23 00:06] LABS: POTASSIUM 4.1 mEq/L (3.7-5.4); SODIUM 130 mEq/L (136-147)
[2016-11-23 00:09] LABS: TROP-I INTERPRETATION NEGATIVE; TROPONIN-I 0.03 ng/mL (0.0-0.30)
[2016-11-23 00:41] LABS: HEMATOCRIT 40.5 % (38.0-50.0); MCH 31.9 PG (29.0-34.0); MCHC 33.8 G/DL (30.0-36.0); MCV 94.2 FL (86-99); MEAN PLAT.VOLUME 10.8 uM^3 (9.0-12.4); PLATELET COUNT 199 K/uL (156-360); RBC DIS.WIDTH-CV 15.5 % (11.8-14.6); RBC DIS.WIDTH-SD 53.5 % (39-53); WHITE BLOOD COUNT 7.5 K/uL (4.1-10.2)
[2016-11-23 03:47] VITALS: BP 140/90
[2016-11-24] MEDS ORDERED: ADVIL200 MG PO (17:50)
[2016-11-24] MEDS ORDERED: BP MED (17:51)
== END 2016-11-23 03:50 | disposition home or self-care (01) ==
LOC: EME 23:09
PROVIDERS: Emergency Medicine
DX: S00.03XA Contusion of scalp, initial encounter (principal); S00.12XA Contusion of left eyelid and periocular area, initial encounter; W18.30XA Fall on same level, unspecified, initial encounter; E87.1 Hypo-osmolality and hyponatremia; J98.11 Atelectasis; F10.10 Alcohol abuse, uncomplicated; R07.9 Chest pain, unspecified; J44.9 Chronic obstructive pulmonary disease, unspecified; I10 Essential (primary) hypertension; J45.909 Unspecified asthma, uncomplicated; K21.9 Gastro-esophageal reflux disease without esophagitis; Z72.0 Tobacco use; Z59.0 Homelessness
CPT/HCPCS: 70450; 71020; 80048; 84484; 85027; 93005; 94640; 99281; 99284

== ENCOUNTER 2016-11-23 21:06 | Inpatient (IN) | payer OTHER ==
[~2016-11-23] VITALS: Ht 185.4 cm; Wt 90.8 kg
[2016-11-23 22:05] LABS: HEMATOCRIT 41.2 % (38.0-50.0); MCH 32.1 PG (29.0-34.0); MCV 94.5 FL (86-99); MEAN PLAT.VOLUME 9.7 uM^3 (9.0-12.4); RBC DIS.WIDTH-CV 15.7 % (11.8-14.6); RBC DIS.WIDTH-SD 54.4 % (39-53); RED BLOOD COUNT 4.36 M/uL (4.00-5.50); WHITE BLOOD COUNT 7.8 K/uL (4.1-10.2)
[2016-11-23 22:08] LABS: PLATELET COUNT 276 K/uL (156-360)
[2016-11-23 22:11] LABS: CHLORIDE 98 mEq/L (99-109); POTASSIUM 4.9 mEq/L (3.7-5.4); SODIUM 134 mEq/L (136-147)
[2016-11-23 22:14] LABS: GLUCOSE 124 mg/dL (70-99)
[2016-11-23 22:15] LABS: ANION GAP 15 MEQ/L (2-14)
[2016-11-23 22:16] LABS: TOTAL BILIRUBIN 0.8 mg/dL (0.0-1.0)
[2016-11-23 22:17] LABS: ALKALINE PHOSPHATASE 253 IU/L (3-129); GFR ESTIMATE (CALCULATED) > 59 mL/min/; SERUM ETHYL ALCOHOL 488 mg/dL
[2016-11-23 22:19] LABS: UREA NITROGEN (BUN) 6 mg/dL (9-23)
[2016-11-23 22:24] LABS: TROP-I INTERPRETATION NEGATIVE; TROPONIN-I 0.01 ng/mL (0.0-0.30)
[2016-11-24] MEDS ORDERED: ADVIL200 MG PO (17:50)
[2016-11-24] MEDS ORDERED: BP MED (17:51)
[2016-11-24 19:55] LABS: CHLORIDE 102 mEq/L (99-109); POTASSIUM 4.1 mEq/L (3.7-5.4); SODIUM 138 mEq/L (136-147)
[2016-11-24 19:56] LABS: MAGNESIUM 1.5 mg/dL (1.3-2.7)
[2016-11-24 19:58] LABS: GLUCOSE 128 mg/dL (70-99)
[2016-11-24 19:59] LABS: ANION GAP 8 MEQ/L (2-14)
[2016-11-24 20:01] LABS: ALKALINE PHOSPHATASE 221 IU/L (3-129); GFR ESTIMATE (CALCULATED) > 59 mL/min/
[2016-11-24 20:02] LABS: UREA NITROGEN (BUN) 6 mg/dL (9-23)
[2016-11-24 20:35] VITALS: BP 167/89
[2016-11-25 02:12] LABS: METH RESISTANT S AUREUS PCR NEGATIVE (NEGATIVE)
[2016-11-25 02:13] LABS: PROBE CHECK PASS; SPECIMEN PROCESSING CONTROL PASS
[2016-11-25 03:45] VITALS: BP 167/79
[2016-11-25 06:52] VITALS: BP 168/89
[2016-11-25 11:40] VITALS: BP 165/100
[2016-11-25 15:19] VITALS: BP 149/75
[2016-11-25 18:53] VITALS: BP 140/89
[2016-11-25 22:22] VITALS: BP 156/82
[2016-11-26] VITALS (7 sets, daily range): BP systolic 136–164; BP diastolic 82–99
[2016-11-26 07:09] LABS: HEMATOCRIT 36.8 % (38.0-50.0); MCH 32.5 PG (29.0-34.0); MCHC 33.7 G/DL (30.0-36.0); MCV 96.3 FL (86-99); MEAN PLAT.VOLUME 10.5 uM^3 (9.0-12.4); PLATELET COUNT 266 K/uL (156-360); RBC DIS.WIDTH-SD 53.1 % (39-53); RED BLOOD COUNT 3.82 M/uL (4.00-5.50); WHITE BLOOD COUNT 7.9 K/uL (4.1-10.2)
[2016-11-26 07:34] LABS: ANION GAP 8 MEQ/L (2-14); CHLORIDE 102 MEQ/L (99-109); GFR ESTIMATE (CALCULATED) > 59 mL/min/; GLUCOSE 107 mg/dL (70-99); MAGNESIUM 1.6 mg/dl (1.3-2.7); POTASSIUM 3.7 MEQ/L (3.7-5.4); SAMPLE HEMOLYSIS CHECK 0; SAMPLE ICTERIC CHECK 0; SAMPLE LIPEMIA CHECK 0; SODIUM 136 MEQ/L (136-147); UREA NITROGEN (BUN) 4 mg/dL (9-23)
[2016-11-27 02:38] VITALS: BP 135/85
[2016-11-27 07:20] VITALS: BP 169/95
[2016-11-27 07:21] LABS: HEMATOCRIT 40.2 % (38.0-50.0); MCH 31.9 PG (29.0-34.0); MCHC 32.8 G/DL (30.0-36.0); MCV 97.1 FL (86-99); MEAN PLAT.VOLUME 10.4 uM^3 (9.0-12.4); PLATELET COUNT 273 K/uL (156-360); RBC DIS.WIDTH-CV 15.2 % (11.8-14.6); RBC DIS.WIDTH-SD 54.8 % (39-53); RED BLOOD COUNT 4.14 M/uL (4.00-5.50); WHITE BLOOD COUNT 9.5 K/uL (4.1-10.2)
[2016-11-27 07:47] LABS: ANION GAP 8 MEQ/L (2-14); CHLORIDE 103 MEQ/L (99-109); GFR ESTIMATE (CALCULATED) > 59 mL/min/; GLUCOSE 109 mg/dL (70-99); MAGNESIUM 1.7 mg/dl (1.3-2.7); POTASSIUM 4.1 MEQ/L (3.7-5.4); SAMPLE HEMOLYSIS CHECK 0; SAMPLE ICTERIC CHECK 0; SAMPLE LIPEMIA CHECK 0; SODIUM 138 MEQ/L (136-147); UREA NITROGEN (BUN) 7 mg/dL (9-23)
[2016-11-27 11:25] VITALS: BP 135/78
[2016-11-27 15:06] VITALS: BP 139/81
[2016-11-27 19:50] VITALS: BP 128/78
[2016-11-27 23:44] VITALS: BP 140/87
[2016-11-28 03:05] VITALS: BP 120/71
[2016-11-28 07:35] VITALS: BP 112/83
[2016-11-28 11:02] VITALS: BP 139/81
[2016-11-28 15:20] VITALS: BP 132/75
[2016-11-28 19:19] VITALS: BP 130/62
[2016-11-28 23:35] VITALS: BP 127/66
[2016-11-29 03:21] VITALS: BP 134/67
[2016-11-29 06:54] VITALS: BP 159/93
[2016-11-29 11:09] VITALS: BP 132/83
[2016-11-29] MEDS ORDERED: Thiamine,Vitamin B1 PO (13:17)
[2016-11-29] MEDS ORDERED: INCRUSE ELLI62.5 MCG IH (13:17)
[2016-11-29] MEDS ORDERED: THERAGRAN1 TABLET PO (13:17)
[2016-11-29] MEDS ORDERED: PREDNISONE5 MG PO (13:17)
[2016-11-29] MEDS ORDERED: DULERA 100 MCG/13 GM IH (13:17)
[2016-11-29] MEDS ORDERED: TRAMADOL HCL50 MG PO (13:17)
[2016-11-29] MEDS ORDERED: PROCARDIA20 MG PO (13:17)
[2016-11-29] MEDS ORDERED: FOLIC ACID1 MG PO (13:17)
[2016-11-29 14:54] VITALS: BP 117/68
[2016-11-29] MEDS ORDERED: ALBUTEROL2.5 MG/3 M IH (15:07)
== END 2016-11-29 16:54 | disposition home or self-care (01) | DRG 897 ==
LOC: EME → EDBD 21:06 → EME 21:06 → 5EAST 11-24 19:17 → EDOF 11-24 19:17 → 5EAST 11-24 20:28
PROVIDERS: Emergency Medicine; Hospitalist; Internal Medicine Nephrology
DX: F10.239 Alcohol dependence with withdrawal, unspecified (principal); F10.229 Alcohol dependence with intoxication, unspecified; Y90.8 Blood alcohol level of 240 mg/100 ml or more; Z59.0 Homelessness; J44.1 Chronic obstructive pulmonary disease with (acute) exacerbation; R45.851 Suicidal ideations; I48.0 Paroxysmal atrial fibrillation; I10 Essential (primary) hypertension; R06.89 Other abnormalities of breathing
CPT/HCPCS: 70450; 71010; 71020; 80048; 80053; 83735; 84100; 84484; 85027; 87641; 90837; 93005; 94640; 94640 76; 94760; 99202; 99281; 99284; 99285; G0480; J2060; J2270; J3360; J3411; J3475; J7030; J7512

== ENCOUNTER 2016-12-06 18:59 | Emergency (ER) | payer OTHER ==
[~2016-12-06] VITALS: Ht 185.4 cm; Wt 95.2 kg
[~2016-12-06 18:59] MED LIST changes: +ADVIL200 MG PO; +ALBUTEROL2.5 MG/3 M IH; +BP MED; +DULERA 100 MCG/13 GM IH; +INCRUSE ELLI62.5 MCG IH; +PREDNISONE5 MG PO; +PROCARDIA20 MG PO; +TRAMADOL HCL50 MG PO
[2016-12-06 21:00] LABS: CHLORIDE 101 mEq/L (99-109); SODIUM 143 mEq/L (136-147)
[2016-12-06 21:01] LABS: GLUCOSE 93 mg/dL (70-99)
[2016-12-06 21:03] LABS: ANION GAP 17 MEQ/L (2-14)
[2016-12-06 21:04] LABS: SERUM ETHYL ALCOHOL 387 mg/dL
[2016-12-06 21:05] LABS: GFR ESTIMATE (CALCULATED) > 59 mL/min/
[2016-12-06 21:06] LABS: UREA NITROGEN (BUN) 5 mg/dL (9-23)
[2016-12-06 21:08] LABS: HEMATOCRIT 46.7 % (38.0-50.0); MCH 32.4 PG (29.0-34.0); MCHC 33.4 G/DL (30.0-36.0); MCV 97.1 FL (86-99); MEAN PLAT.VOLUME 9.8 uM^3 (9.0-12.4); PLATELET COUNT 372 K/uL (156-360); RBC DIS.WIDTH-CV 14.8 % (11.8-14.6); RBC DIS.WIDTH-SD 53.1 % (39-53); RED BLOOD COUNT 4.81 M/uL (4.00-5.50); WHITE BLOOD COUNT 7.1 K/uL (4.1-10.2)
[2016-12-06 21:09] LABS: TROP-I INTERPRETATION NEGATIVE; TROPONIN-I < 0.01 ng/mL (0.0-0.30)
[2016-12-07 01:28] VITALS: BP 130/75
== END 2016-12-07 01:42 | disposition home or self-care (01) ==
LOC: EME 18:59
PROVIDERS: Physician Assistant
DX: J44.1 Chronic obstructive pulmonary disease with (acute) exacerbation (principal); F10.129 Alcohol abuse with intoxication, unspecified; Y90.8 Blood alcohol level of 240 mg/100 ml or more; S70.01XA Contusion of right hip, initial encounter; M54.2 Cervicalgia; R51 Headache; W19.XXXA Unspecified fall, initial encounter; R11.2 Nausea with vomiting, unspecified; Z91.14 Patient's other noncompliance with medication regimen; F17.200 Nicotine dependence, unspecified, uncomplicated
CPT/HCPCS: 70450; 71010; 71020; 72125; 73502; 80048; 84484; 85027; 93005; 94640; 99281; 99285; G0480; J1100; J2405; J7030; J7644

== ENCOUNTER 2016-12-07 19:39 | Inpatient (IN) | payer OTHER ==
[~2016-12-07] VITALS: Ht 185.4 cm; Wt 97.3 kg
[2016-12-07 21:18] LABS: EOSINOPHIL (%) 0 % (0-5); HEMATOCRIT 37.8 % (38.0-50.0); IMMATURE GRANULOCYTE (%) 0.5 % (0.0-0.7); INSTRUMENT ABS NEUTROPHIL CT 6.6 K/uL; MCH 32.7 PG (29.0-34.0); MCHC 34.4 G/DL (30.0-36.0); MCV 95.2 FL (86-99); MEAN PLAT.VOLUME 9.1 uM^3 (9.0-12.4); MONOCYTE COUNT 0.6 K/uL (0-0.8); NEUTROPHIL (%) 80.2 % (45-76); NEUTROPHIL COUNT 6.6 K/uL (1.8-6.4); PLATELET COUNT 395 K/uL (156-360); RBC DIS.WIDTH-CV 14.7 % (11.8-14.6); RBC DIS.WIDTH-SD 52.3 % (39-53); RED BLOOD COUNT 3.97 M/uL (4.00-5.50); WHITE BLOOD COUNT 8.2 K/uL (4.1-10.2)
[2016-12-07 21:25] LABS: CHLORIDE 101 mEq/L (99-109); POTASSIUM 4.3 mEq/L (3.7-5.4); SODIUM 140 mEq/L (136-147)
[2016-12-07 21:27] LABS: GLUCOSE 130 mg/dL (70-99)
[2016-12-07 21:28] LABS: ANION GAP 14 MEQ/L (2-14)
[2016-12-07 21:29] LABS: TOTAL BILIRUBIN 0.5 mg/dL (0.0-1.0)
[2016-12-07 21:30] LABS: SERUM ETHYL ALCOHOL 324 mg/dL
[2016-12-07 21:31] LABS: ALKALINE PHOSPHATASE 144 IU/L (3-129); GFR ESTIMATE (CALCULATED) > 59 mL/min/
[2016-12-07 21:32] LABS: UREA NITROGEN (BUN) 6 mg/dL (9-23)
[2016-12-07 21:34] LABS: LIPASE 49 U/L (1.0-51.0)
[2016-12-07 21:40] LABS: TROP-I INTERPRETATION NEGATIVE; TROPONIN-I < 0.01 ng/mL (0.0-0.30)
[2016-12-07 23:20] LABS: ADD MIUA? NO; BILIRUBIN NEGATIVE; BLOOD NEGATIVE; COLOR STRAW ((YELLOW)); GLUCOSE (STRIP) NEGATIVE; KETONES NEGATIVE; LEUKOCYTES NEGATIVE; NITRITE NEGATIVE; PROTEIN (STRIP) NEGATIVE; SPECIFIC GRAVITY 1.003 (1.000-1.030); UCUL ADDED? NO; UROBILINOGEN 0.2 MG/DL (0.2-1.0)
[2016-12-07 23:29] LABS: ADD MEDTOX COMMENT Y; AMPHETAMINE NEGATIVE (500 ng/mL); BARBITURATES NEGATIVE (200 ng/mL); BENZODIAZEPINES PRESUMPTIVE POSITIVE (150 ng/mL); COCAINE NEGATIVE (150 ng/mL); INTERNAL CONTROLS VALID? YES; METHADONE NEGATIVE (200 ng/mL); METHAMPHETAMINE NEGATIVE (500 ng/mL); OPIATES (MORPHINE) NEGATIVE (100 ng/mL); OXYCODONE NEGATIVE (100 ng/mL); PHENCYCLIDINE NEGATIVE (25 ng/mL); PROPOXYPHENE NEGATIVE (300 ng/mL); THC CANNABINOIDS NEGATIVE (50 ng/mL); TRICYCLIC ANTIDEPRESSANTS NEGATIVE (300 ng/mL)
[2016-12-08 01:57] LABS: BENZODIAZEPINES QUANT VALUE 0 NG/ML; BENZODIAZEPINES, URINE SCREEN Negative (200 ng/mL)
[2016-12-08 07:14] VITALS: BP 179/93
[2016-12-08 11:20] VITALS: BP 171/96
[2016-12-08 16:00] VITALS: BP 166/84
[2016-12-08 17:17] VITALS: BP 156/83
[2016-12-08 20:28] VITALS: BP 158/84
[2016-12-09 00:11] VITALS: BP 136/80
[2016-12-09 05:15] VITALS: BP 167/89
[2016-12-09 07:20] VITALS: BP 153/86
[2016-12-09 07:39] LABS: HEMATOCRIT 39.4 % (38.0-50.0); MCH 32.5 PG (29.0-34.0); MCHC 33.5 G/DL (30.0-36.0); MEAN PLAT.VOLUME 9.4 uM^3 (9.0-12.4); PLATELET COUNT 350 K/uL (156-360); RBC DIS.WIDTH-CV 14.6 % (11.8-14.6); RBC DIS.WIDTH-SD 53.1 % (39-53); RED BLOOD COUNT 4.06 M/uL (4.00-5.50)
[2016-12-09 07:46] LABS: WHITE BLOOD COUNT 12.9 K/uL (4.1-10.2)
[2016-12-09 08:11] LABS: ANION GAP 9 MEQ/L (2-14); CHLORIDE 100 MEQ/L (99-109); GFR ESTIMATE (CALCULATED) > 59 mL/min/; GLUCOSE 110 mg/dL (70-99); SAMPLE HEMOLYSIS CHECK 0; SAMPLE ICTERIC CHECK 0; SAMPLE LIPEMIA CHECK 0; SODIUM 139 MEQ/L (136-147); UREA NITROGEN (BUN) 5 mg/dL (9-23)
[2016-12-09 08:38] LABS: POTASSIUM 3.2 MEQ/L (3.7-5.4)
[2016-12-09 11:10] VITALS: BP 144/91
[2016-12-09 15:37] LABS: MAGNESIUM 1.4 mg/dl (1.3-2.7)
[2016-12-09 15:50] VITALS: BP 170/85
[2016-12-09 17:15] LABS: C DIFF TOXIN NEGATIVE (NEGATIVE)
[2016-12-09 17:18] LABS: PROBE CHECK PASS; SPECIMEN PROCESSING CONTROL PASS
[2016-12-09 19:58] VITALS: BP 149/85
[2016-12-10 00:41] VITALS: BP 118/64
[2016-12-10 04:13] VITALS: BP 152/81
[2016-12-10 07:04] LABS: HEMATOCRIT 43.7 % (38.0-50.0); MCH 32.1 PG (29.0-34.0); MCHC 33.6 G/DL (30.0-36.0); MCV 95.4 FL (86-99); MEAN PLAT.VOLUME 10.1 uM^3 (9.0-12.4); PLATELET COUNT 356 K/uL (156-360); RBC DIS.WIDTH-CV 14.1 % (11.8-14.6); RBC DIS.WIDTH-SD 50.1 % (39-53); RED BLOOD COUNT 4.58 M/uL (4.00-5.50); WHITE BLOOD COUNT 11.8 K/uL (4.1-10.2)
[2016-12-10 07:31] LABS: ANION GAP 11 MEQ/L (2-14); CHLORIDE 102 MEQ/L (99-109); GFR ESTIMATE (CALCULATED) > 59 mL/min/; GLUCOSE 151 mg/dL (70-99); POTASSIUM 3.8 MEQ/L (3.7-5.4); SAMPLE HEMOLYSIS CHECK 0; SAMPLE ICTERIC CHECK 0; SAMPLE LIPEMIA CHECK 0; SODIUM 139 MEQ/L (136-147); UREA NITROGEN (BUN) 9 mg/dL (9-23)
[2016-12-10 08:00] VITALS: BP 169/92
[2016-12-10 11:29] VITALS: BP 138/81
[2016-12-10 13:04] LABS: MAGNESIUM 1.5 mg/dl (1.3-2.7)
[2016-12-10 15:41] VITALS: BP 138/84
[2016-12-10 20:13] VITALS: BP 150/89
[2016-12-11] VITALS (7 sets, daily range): BP systolic 132–162; BP diastolic 69–90
[2016-12-11 15:07] LABS: HEMATOCRIT 40.4 % (38.0-50.0); MCHC 32.7 G/DL (30.0-36.0); MCV 98.1 FL (86-99); PLATELET COUNT 271 K/uL (156-360); RBC DIS.WIDTH-CV 14.3 % (11.8-14.6); RED BLOOD COUNT 4.12 M/uL (4.00-5.50)
[2016-12-11 16:02] LABS: ALKALINE PHOSPHATASE 91 IU/L (3-129); ANION GAP 8 MEQ/L (2-14); CHLORIDE 106 MEQ/L (99-109); DIRECT BILIRUBIN 0.2 mg/dL (0.0-0.3); GFR ESTIMATE (CALCULATED) > 59 mL/min/; GLUCOSE 115 mg/dL (70-99); POTASSIUM 3.6 MEQ/L (3.7-5.4); SAMPLE HEMOLYSIS CHECK 0; SAMPLE ICTERIC CHECK 0; SAMPLE LIPEMIA CHECK 0; SODIUM 142 MEQ/L (136-147); TOTAL BILIRUBIN 0.5 MG/DL (0.0-1.0); UREA NITROGEN (BUN) 9 mg/dL (9-23)
[2016-12-11] MEDS ORDERED: PREDNISONE5 MG PO (17:13)
[2016-12-11] MEDS ORDERED: VITAMIN B-1100 MG PO (17:15)
[2016-12-12 03:59] VITALS: BP 133/77
[2016-12-12 07:51] VITALS: BP 133/75
[2016-12-12 09:59] LABS: HEMATOCRIT 40.9 % (38.0-50.0); MCH 32.9 PG (29.0-34.0); MCV 99.8 FL (86-99); MEAN PLAT.VOLUME 10.3 uM^3 (9.0-12.4); PLATELET COUNT 288 K/uL (156-360); RBC DIS.WIDTH-CV 14.4 % (11.8-14.6); RBC DIS.WIDTH-SD 53.1 % (39-53); WHITE BLOOD COUNT 11.4 K/uL (4.1-10.2)
[2016-12-12 10:31] LABS: ALKALINE PHOSPHATASE 92 IU/L (3-129); ANION GAP 10 MEQ/L (2-14); CHLORIDE 101 MEQ/L (99-109); DIRECT BILIRUBIN 0.2 mg/dL (0.0-0.3); GFR ESTIMATE (CALCULATED) > 59 mL/min/; GLUCOSE 118 mg/dL (70-99); POTASSIUM 3.9 MEQ/L (3.7-5.4); SAMPLE HEMOLYSIS CHECK 0; SAMPLE ICTERIC CHECK 0; SAMPLE LIPEMIA CHECK 0; SODIUM 139 MEQ/L (136-147); TOTAL BILIRUBIN 0.5 MG/DL (0.0-1.0); UREA NITROGEN (BUN) 9 mg/dL (9-23)
[2016-12-12 11:28] VITALS: BP 147/76
[2016-12-12 15:20] VITALS: BP 153/82
[2016-12-12 19:38] VITALS: BP 128/79
[2016-12-12 23:58] VITALS: BP 155/73
[2016-12-13 04:02] VITALS: BP 132/85
[2016-12-13 09:39] VITALS: BP 118/63
[2016-12-13 12:00] VITALS: BP 134/69
[2016-12-13 16:11] VITALS: BP 142/74
[2016-12-13 20:00] VITALS: BP 125/70
[2016-12-14] VITALS: BP 130/67
[2016-12-14 03:46] VITALS: BP 132/71
[2016-12-14 07:08] VITALS: BP 144/81
[2016-12-14 10:11] LABS: HEMATOCRIT 39.5 % (38.0-50.0); MCHC 32.2 G/DL (30.0-36.0); MCV 99.5 FL (86-99); MEAN PLAT.VOLUME 10.7 uM^3 (9.0-12.4); PLATELET COUNT 263 K/uL (156-360); RBC DIS.WIDTH-CV 13.9 % (11.8-14.6); RBC DIS.WIDTH-SD 51.1 % (39-53); RED BLOOD COUNT 3.97 M/uL (4.00-5.50); WHITE BLOOD COUNT 12.7 K/uL (4.1-10.2)
[2016-12-14 10:23] LABS: CHLORIDE 105 mEq/L (99-109); POTASSIUM 3.9 mEq/L (3.7-5.4); SODIUM 141 mEq/L (136-147)
[2016-12-14 10:26] LABS: ANION GAP 9 MEQ/L (2-14)
[2016-12-14 10:27] LABS: GLUCOSE 208 mg/dL (70-99)
[2016-12-14 10:28] LABS: GFR ESTIMATE (CALCULATED) > 59 mL/min/
[2016-12-14 10:29] LABS: UREA NITROGEN (BUN) 8 mg/dL (9-23)
[2016-12-14 15:10] VITALS: BP 132/70
[2016-12-14 20:11] VITALS: BP 125/67
[2016-12-14 23:52] VITALS: BP 122/67
[2016-12-15 03:55] VITALS: BP 130/78
[2016-12-15 07:11] VITALS: BP 150/82
[2016-12-15 10:08] VITALS: BP 133/80
[2016-12-15 10:12] LABS: HEMATOCRIT 39.7 % (38.0-50.0); MCH 32.2 PG (29.0-34.0); MCHC 32.2 G/DL (30.0-36.0); PLATELET COUNT 306 K/uL (156-360); RBC DIS.WIDTH-SD 51.9 % (39-53); RED BLOOD COUNT 3.97 M/uL (4.00-5.50)
[2016-12-15 10:31] LABS: ANION GAP 10 MEQ/L (2-14); CHLORIDE 105 MEQ/L (99-109); POTASSIUM 3.6 MEQ/L (3.7-5.4); SAMPLE HEMOLYSIS CHECK 0; SAMPLE ICTERIC CHECK 0; SAMPLE LIPEMIA CHECK 0; SODIUM 141 MEQ/L (136-147)
[2016-12-15 10:38] LABS: GFR ESTIMATE (CALCULATED) > 59 mL/min/; GLUCOSE 123 mg/dL (70-99); UREA NITROGEN (BUN) 10 mg/dL (9-23)
[2016-12-15 15:08] VITALS: BP 131/71
[2016-12-15 23:56] VITALS: BP 124/62
[2016-12-16 07:51] VITALS: BP 161/92
[2016-12-16 09:58] VITALS: BP 152/84
[2016-12-16] MEDS ORDERED: PREDNISONE20 MG PO (11:11)
== END 2016-12-16 13:06 | disposition home or self-care (01) | DRG 191 ==
LOC: EME → EDBD 19:39 → EME 19:39 → 3EAST 12-08 05:04 → EDOF 12-08 05:04 → 3EAST 12-08 07:07
PROVIDERS: Emergency Medicine; Hospitalist; Physician Assistant
DX: J44.1 Chronic obstructive pulmonary disease with (acute) exacerbation (principal); J20.9 Acute bronchitis, unspecified; J44.0 Chronic obstructive pulmonary disease with (acute) lower respiratory infection; E87.2 Acidosis; F10.239 Alcohol dependence with withdrawal, unspecified; E86.0 Dehydration; E87.6 Hypokalemia; D72.829 Elevated white blood cell count, unspecified; T38.0X5A Adverse effect of glucocorticoids and synthetic analogues, initial encounter; J45.909 Unspecified asthma, uncomplicated; I10 Essential (primary) hypertension; E78.5 Hyperlipidemia, unspecified; F10.229 Alcohol dependence with intoxication, unspecified; Y90.8 Blood alcohol level of 240 mg/100 ml or more; F17.210 Nicotine dependence, cigarettes, uncomplicated; E66.9 Obesity, unspecified; Z68.28 Body mass index [BMI] 28.0-28.9, adult
CPT/HCPCS: 70450; 71010; 71020; 72125; 73502; 80048; 80053; 80076; 81003; 83605; 83690; 83735; 84484; 84999; 85025; 85027; 87040; 87070; 87077; 87186; 87205; 87493; 87801; 93005; 94640; 94640 76; 94644; 94799; 95819; 99202; 99281; 99284; 99285; G0480; J0696; J1100; J1650; J1885; J2060; J2405; J2920; J2930; J3411; J7030; J7050; J7120; J7512; J7644

== ENCOUNTER 2016-12-16 19:45 | Emergency (ER) | payer OTHER ==
[~2016-12-16] VITALS: Ht 185.4 cm; Wt 95.7 kg
[2016-12-17 05:47] VITALS: BP 138/87
== END 2016-12-17 05:47 | disposition home or self-care (01) ==
LOC: EME → EDBD 19:45 → EME 19:45
DX: J44.1 Chronic obstructive pulmonary disease with (acute) exacerbation (principal); F10.129 Alcohol abuse with intoxication, unspecified
CPT/HCPCS: 71010; 94640; 99281; 99283